=== PATIENT | male | born 1970 | race Caucasian/White ===

== ENCOUNTER 2023-05-29 12:34 | Emergency (ER) | payer BC, SELFPAY ==
[2023-05-29 12:35] VITALS: BP 156/110
[2023-05-29 13:06] VITALS: BP 152/105; BMI 30.1
[2023-05-29 13:21] VITALS: BP 153/104
[2023-05-29 13:25] LABS: % Basophils 1.1 % (0-2); % Eosinophils 0.6 % (0-6); % Immature Granulocytes 0.2 % (0-0.5); % Lymphocytes 25.7 % (20.5-51.1); % Monocytes 7.2 % (1.7-9.3); % Neutrophils 65.2 % (42.2-75.2); Absolute Basophils 0.1 10^3/uL (0-0.2); Absolute Eosinophils 0.1 10^3/uL (0-0.7); Absolute Lymphocytes 2.2 10^3/uL (1.2-3.4); Absolute Monocytes 0.6 10^3/uL (0.1-0.6); Absolute Neutrophils 5.5 10^3/uL (1.4-6.5); Hematocrit 46.3 % (39.0-52.0); Hemoglobin 16.3 g/dL (13.0-18.0); Mean Corp Hgb Conc. 35.2 g/dL (33.0-37.0); Mean Corpuscular Hgb 30.4 pg (27.0-31.0); Mean Corpuscular Volume 86.2 fL (80.0-94.0); Mean Platelet Volume 10.4 fL (7.4-10.4); Nucleated Red Blood Cells % 0 % (-); Platelet Count 229 10^3/uL (130-400); Red Blood Cell Count 5.37 10^6/uL (4.70-6.10); Red Cell Dist. Width 12.4 % (11.5-14.5); White Blood Cell Count 8.5 10^3/uL (4.8-10.8)
[2023-05-29 13:36] LABS: ALT (SGPT) 25 U/L (0-50); AST (SGOT) 22 U/L (17-59); Albumin 4.6 g/dl (3.5-5.0); Alkaline Phosphatase 91 U/L (38-126); Blood Urea Nitrogen 21 mg/dl (9-20); Calcium 9.2 mg/dl (8.4-10.2); Carbon Dioxide 24 mmol/L (22-30); Chloride 107 mmol/L (98-107); Estimated Creatinine Clearance 90 ml/min; Glucose 99 mg/dl (70-99); Potassium 4.1 mmol/L (3.5-5.1); Sodium 137 mmol/L (135-145); Total Bilirubin 0.8 mg/dl (0.2-1.3); Total Protein 7.2 g/dl (6.3-8.2); eGFR > 60.00
--- NOTE | 2023-05-29 13:38 | ED.GENMED ---
History of Present Illness
General
Chief Complaint: Chest Pain
Source: patient
Exam Limitations: none
Time Seen by Provider: 05/29/23 13:03
Travel History
Have you had any contact with someone who has COVID-19?: No
Do you have any symptoms of coronavirus? Fever > 100 degrees, chills, cough, shortness of breath, sore throat, loss of taste or smell, muscle aches, or headache?: No
History of Present Illness
History of Present Illness:
53-year-old male with history of hypertension and anxiety who presents with chest pain that has been ongoing since . The patient states that he was raking leaves and doing some yard work and washing a car when he developed chest discomfort
and shortness of breath. He states that he first thought maybe he was just out of shape. The symptoms persisted. The next day the symptoms still persisted and while driving had what he describes as an anxiety attack. He has had those before and
states it was the same. States got little bit sweaty but was able to tie puller. Since then the pain has persisted. It has been constant since . He states it mostly feels like somebody sitting on his chest but has some pain toward the
right that seems to be a little worse when he breathes. Admits that he is on Lexapro and amlodipine and states that he probably only takes his Lexapro 60% of the time. He states his amlodipine is a little more faithful to but still misses doses.
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
Past History
Past History
ED Past Medical History: HTN and Other (Renal calculi, Prostatitis)
ED Past Surgical History: Orthopedic and Urological
Social History
Tobacco: Former smoker
Alcohol: Occasional
Drug: None
Personal:
Living: alone
Employment: Employed
Family History
Family History: Other (Noncontributory)
Phy Exam
Physical Exam
Physical Exam:
CONSTITUTIONAL Patient alert and oriented to person, place and time. Well-appearing. Vital signs reviewed. Blood pressure 153/103 on exam
HEAD atraumatic, normocephalic.
EYES eyelids normal to inspection, Pupils equally round and reactive to light, Extraocular muscles intact, Conjunctiva normal, Sclera normal.
NECK normal range of motion, Trachea midline, no jugular venous distention.
RESPIRATORY CHEST No respiratory distress noted, Chest expansion equal, Bilateral breath sounds clear.
CARDIOVASCULAR regular rate and rhythm, Heart sounds normal.
ABDOMEN abdomen nontender, Bowel sounds normal. No distention.
BACK normal inspection, no obvious deformities
UPPER EXTREMITY range of motion normal, Motor strength normal, no cyanosis, no edema.
LOWER EXTREMITY range of motion normal, Motor strength normal, no cyanosis, no edema.
NEURO Speech normal, No focal motor deficits, Canyon coma scale 15, Memory normal, Cranial Nerves intact to screening exam.
SKIN skin warm, dry, and normal in color.
Scores
Heart Score for Chest Pain Patients
STEMI patient?: No
History: Slightly or Non-Suspicious
ECG: Normal
Age: >45 - <65 years
Risk Factors: 1 or 2 Risk Factors
Troponin: </= Normal Limit
Heart Score for Chest Pain Patients: 2
Heart Score Risk: 2.5% MACE over next 6 weeks
Course
Orders/Labs/Results
Orders:
Orders
05/29/23 12:37
Electrocardiogram (*1) Urgent
Reason for Study: Chest Pain
EKG- Treatment ONCE
05/29/23 13:17
CMP [Comprehensive Metabolic Panel] Urgent
Complete Blood Count/With Diff Urgent
Troponin I Urgent
05/29/23 13:37
DDimer [D-Dimer] Stat
05/29/23 15:34
CR Chest - 2 Views Urgent
Comment:
Reason For Exam: cp
Abnormal Lab Results
05/29/23
13:17
BUN 21 H mg/dl
(9-20)
05/29/23 13:17
05/29/23 13:17
Vital Signs
Initial and Last Documented VS:
Initial Vital Signs
Temp Pulse Resp BP Pulse Ox
97.6 F 88 18 156/110 97
05/29/23 12:35 05/29/23 12:35 05/29/23 12:35 05/29/23 12:35 05/29/23 12:35
Last Documented Vital Signs
Temp Pulse Resp BP Pulse Ox
97.6 F 66 11 151/87 94
05/29/23 12:35 05/29/23 16:30 05/29/23 16:30 05/29/23 16:00 05/29/23 16:30
MDM/Problems Addressed
MDM/Problems Addressed:
Chest pain, hypertension
Acute Exacerbation and/or Progression of Chronic Illness: HTN
*Radiology
Radiology exam reviewed: radiology read reviewed
*Pulse Oximetry
Patient hypoxic: no
*EKG
Interpreted by ED Provider?: Yes
Rate: normal
Rhythm: sinus
QRS Pattern: normal QRS
Ischemia: non-specific ST changes
*Special Technical Operations Officer Interpretation
Rate: normal
Interpretation: normal
Rhythm: sinus
*Critical Care Note
Total Time (30-74mins, 75-104mins- exclusive of procedures): Not Applicable
Data Reviewed
Source: patient
Prescriptions/Medications Considered But Not Given:
Consider nitroglycerin but symptoms have been constant for the last 3 to 4 days and EKG grossly unremarkable for acute ischemia
Patient Management
Escalation/DeEscalation of care consider admission/obs:
Patient appears well. Symptoms since . Troponin negative. D-dimer negative. Okay for outpatient follow-up. In light of his anxiety and hypotension, add metoprolol. Recommended outpatient PCP follow-up. Will provide outpatient
cardiology follow-up as well
ED Attending Note
-
Portions of this chart may have been created with voice recognition software.� Occasional wrong word or��sound alike� substitutions may have occurred due to the inherent limitations of voice recognition software.
Discharge Plan
Departure
Patient Disposition: Home (Routine Discharge)
Date of Disposition: 05/29/23
Time of Disposition: 16:01
Patient with high blood pressure during this ER visit?: Yes
Discharge Problem:
Chest pain
Instructions: Chest Pain CBC Follow Up, BLOOD PRESSURE
Prescriptions:
No Action
amlodipine 10 MG tablet
10 mg PO DAILY
tamsulosin 0.4 MG capsule
0.4 mg PO PRN PRN (Reason: prostatitis )
escitalopram oxalate [Lexapro] 10 mg Tablet
10 mg PO DAILY
hydrocodone-acetaminophen 5-325 mg tablet
1 tab PO Q6H PRN (Reason: pain) Qty: 10 0RF
Referrals:
NONE,* [Family Provider] -
Activity Restrictions/Additional Instructions:
Please see your doctor or cardiology next 3 to 5 days for follow-up and reevaluation. Return immediately for worsening symptoms, vomiting, shortness of breath, palpitations or any other concerns. Please be sure to take your medications daily as
prescribed.
Interventions
Interventions:
*Risk Screen - Suicide Last Done: 05/29/23 12:35
*General Assessment Last Done: 05/29/23 12:35
*Neglect/Abuse Screening Last Done: 05/29/23 12:35
ED- Fall Risk Assessment Last Done: 05/29/23 13:06
*ED COVID-19 Vaccine History Last Done: 05/29/23 12:35
*Nursing Disposition Last Done: 05/29/23 16:43
ED- Cardiac Assessment Last Done: 05/29/23 13:06
Discharge Date and Time
Discharge Date/Time: 05/29/23 16:44
[2023-05-29 13:48] LABS: Troponin I < 0.012 ng/ml
[2023-05-29 14:00] VITALS: BP 145/97
[2023-05-29 14:14] LABS: D-Dimer 0.26 ug/mlFEU (0.00-0.50)
[2023-05-29 15:00] VITALS: BP 140/106
[2023-05-29 16:00] VITALS: BP 151/87
== END 2023-05-29 16:44 | disposition home or self-care (01) ==
LOC: EMR 12:34
PROVIDERS: EMERGENCY PHYSICIAN Emergency Medicine
DX: R07.89 Other chest pain (principal); I10 Essential (primary) hypertension; F41.9 Anxiety disorder, unspecified; Z87.891 Personal history of nicotine dependence
CPT/HCPCS: 99285; 71046; 80053; 84484; 85025; 85379; 93005

== ENCOUNTER 2023-08-25 14:08 | Emergency (ER) | payer BC, SELFPAY ==
[2023-08-25 14:09] VITALS: BMI 30.1
[2023-08-25 14:14] VITALS: BP 126/94
[2023-08-25 14:31] VITALS: BP 142/104
--- NOTE | 2023-08-25 14:39 | ED.GENMED ---
History of Present Illness
General
Chief Complaint: Chest Pain
Source: patient
Time Seen by Provider: 08/25/23 14:38
Travel History
Have you had any contact with someone who has COVID-19?: No
Do you have any symptoms of coronavirus? Fever > 100 degrees, chills, cough, shortness of breath, sore throat, loss of taste or smell, muscle aches, or headache?: No
History of Present Illness
History of Present Illness:
53-year-old male presents with ongoing chest pain. Started 6 days ago. Has been continuous since then. Was moderate until 3 days ago and less severe since then. Points to lower midsternal. No radiation. No back pain or shearing pain. Similar
episode in May of this year. Did not have this followed up. Patient also has a history of what he calls panic attacks where he will get occasional lightheadedness. He had an episode 2 weeks ago. These occur every few months. Has seen
physicians for this in the past with no serious etiology found.
Past History
Past History
ED Past Medical History: HTN and Other (Renal calculi, Prostatitis)
ED Past Surgical History: Orthopedic and Urological
Social History
Tobacco: Former smoker
Alcohol: Occasional
Drug: None
Personal:
Living: alone
Employment: Employed
Family History
Family History: Other (Noncontributory)
Review of Systems
Review of Systems
All Other Systems: Not applicable
Constitutional: Denies fever
Respiratory: Denies no symptoms
Cardiac: Denies diaphoresis, palpitations or syncope
Phy Exam
Physical Exam
Physical Exam:
GENERAL: Alert and oriented in no apparent distress
EYE: Orbits normal.
NECK: Supple, no thyroid palpable
ENT: Pharynx without erythema
CARDIAC: Regular rate and rhythm without any obvious murmurs.
LUNGS: Clear breath sounds,normal
ABDOMEN: Soft, without focal tenderness or distention
NEUROLOGICAL: Alert and oriented , grossly non-focal
SKIN: Warm and dry, no rash or lesion, no discoloration, skin intact.
MUSCULOSKELETAL: No edema,no deformity.Good color
PSYCH: Normal and appropriate interaction.
Scores
Heart Score for Chest Pain Patients
STEMI patient?: No
History: Slightly or Non-Suspicious
ECG: Normal
Age: >45 - <65 years
Risk Factors: 1 or 2 Risk Factors
Troponin: </= Normal Limit
Heart Score for Chest Pain Patients: 2
Heart Score Risk: 2.5% MACE over next 6 weeks
Course
Orders/Labs/Results
Orders:
Orders
08/25/23 14:11
Electrocardiogram (*1) Urgent
Reason for Study: Chest Pain
EKG- Treatment ONCE
08/25/23 14:38
Complete Blood Count/With Diff Urgent
Comprehensive Metabolic Panel Urgent
Troponin I Urgent
08/25/23 15:00
D-Dimer Urgent
08/25/23 17:43
Valsartan [Diovan] 80 mg PO NOW STA
08/25/23 14:38
08/25/23 14:38
Vital Signs
Initial and Last Documented VS:
Initial Vital Signs
Temp Pulse Resp BP Pulse Ox
99.6 F 100 16 126/94 98
08/25/23 14:14 08/25/23 14:14 08/25/23 14:14 08/25/23 14:14 08/25/23 14:14
Last Documented Vital Signs
Temp Pulse Resp BP Pulse Ox
99.6 F 66 11 148/106 98
08/25/23 14:14 08/25/23 17:00 08/25/23 17:00 08/25/23 17:00 08/25/23 14:14
MDM/Problems Addressed
Differential Diagnosis Includes:
Patient with continual lower midsternal chest discomfort for 6 days. Nonexertional. Nontoxic in appearance benign exam. EKG is stable. Await troponin. Expect this to be stable. Patient has describes some mild shortness of breath with exertion
while playing golf last week. Workup in progress. If all stable no indication for repeat troponin testing given the prolonged symptoms however as I discussed with him should warrant cardiac follow-up for completeness
*Pulse Oximetry
Patient hypoxic: no
*EKG
Interpreted by ED Provider?: Yes
Interpretation: abnormal
Comparison EKG: no changes
Heart Rate: 70
Rate: normal
Rhythm: sinus
Shafter: normal axis
Interval: normal interval
QRS Pattern: normal QRS
Ischemia: non-specific ST changes
*Critical Care Note
Total Time (30-74mins, 75-104mins- exclusive of procedures): Not Applicable
Data Reviewed
Review of Other/Old Records Reveals: Labs, Records and Testing
Update Note
Update Note:
Patient with continuous nonexertional chest pain for 6 days. Clinically nontoxic and in no distress. Workup unremarkable. Patient had a chest x-ray in May. Do not feel this needs to be repeated. Nothing to support the concern for dissection.
Diastolic blood pressures have been running about 105 here. It sounds like they have been running high at home. Patient is on amlodipine 10 mg a day. I feel a second agent is reasonable. Discussed with cardiology who recommended valsartan 80 mg
a day. They will be following up this week. Patient also questioned a higher dose of Lexapro which I stated really should be discussed with a primary physician.
ED Attending Note
-
Portions of this chart may have been created with voice recognition software.� Occasional wrong word or��sound alike� substitutions may have occurred due to the inherent limitations of voice recognition software.
Discharge Plan
Departure
Patient Disposition: Home (Routine Discharge)
Date of Disposition: 08/25/23
Time of Disposition: 17:45
Patient with high blood pressure during this ER visit?: Yes
Discharge Problem:
Anterior chest pain
Instructions: Chest Pain CBC Follow Up, BLOOD PRESSURE
Prescriptions:
New
valsartan 80 mg tablet
80 mg PO DAILY Qty: 30 0RF
No Action
amlodipine 10 MG tablet
10 mg PO DAILY
tamsulosin 0.4 MG capsule
0.4 mg PO PRN PRN (Reason: prostatitis )
escitalopram oxalate [Lexapro] 10 mg Tablet
10 mg PO DAILY
hydrocodone-acetaminophen 5-325 mg tablet
1 tab PO Q6H PRN (Reason: pain) Qty: 10 0RF
Referrals:
[facility] [Outside] - Next open appointment
Rahul Wills MD [Active] - Follow up in 2-3 days
NONE,* [Family Provider] -
Interventions
Interventions:
*Risk Screen - Suicide Last Done: 08/25/23 14:40
*General Assessment Last Done: 08/25/23 14:40
*Neglect/Abuse Screening Last Done: 08/25/23 14:40
ED- Fall Risk Assessment Last Done: 08/25/23 14:40
*ED COVID-19 Vaccine History Last Done: 08/25/23 14:14
ED- Cardiac Assessment Last Done: 08/25/23 14:40
Discharge Date and Time
Print Language: HEBREW
[2023-08-25 14:54] LABS: % Basophils 1.1 % (0-2); % Eosinophils 0.2 % (0-6); % Immature Granulocytes 0.2 % (0-0.5); % Lymphocytes 28.3 % (20.5-51.1); % Monocytes 5.5 % (1.7-9.3); % Neutrophils 64.7 % (42.2-75.2); Absolute Basophils 0.1 10^3/uL (0-0.2); Absolute Lymphocytes 2.6 10^3/uL (1.2-3.4); Absolute Monocytes 0.5 10^3/uL (0.1-0.6); Hematocrit 44.4 % (39.0-52.0); Mean Corpuscular Hgb 30.7 pg (27.0-31.0); Mean Corpuscular Volume 85.2 fL (80.0-94.0); Mean Platelet Volume 10.2 fL (7.4-10.4); Nucleated Red Blood Cells % 0 % (-); Platelet Count 264 10^3/uL (130-400); Red Blood Cell Count 5.21 10^6/uL (4.70-6.10); Red Cell Dist. Width 12.6 % (11.5-14.5); White Blood Cell Count 9.2 10^3/uL (4.8-10.8)
[2023-08-25 15:00] VITALS: BP 142/105
[2023-08-25 15:05] LABS: ALT (SGPT) 19 U/L (0-50); AST (SGOT) 20 U/L (17-59); Albumin 4.6 g/dl (3.5-5.0); Alkaline Phosphatase 94 U/L (38-126); Blood Urea Nitrogen 18 mg/dl (9-20); Calcium 9.4 mg/dl (8.4-10.2); Carbon Dioxide 24 mmol/L (22-30); Chloride 106 mmol/L (98-107); Estimated Creatinine Clearance 99 ml/min; Glucose 97 mg/dl (70-99); Potassium 3.9 mmol/L (3.5-5.1); Sodium 139 mmol/L (135-145); Total Bilirubin 0.7 mg/dl (0.2-1.3); Total Protein 7.1 g/dl (6.3-8.2); eGFR > 60.00
[2023-08-25 15:17] LABS: Troponin I < 0.012 ng/ml
[2023-08-25 16:00] VITALS: BP 147/99
[2023-08-25 17:00] VITALS: BP 148/106
[2023-08-25 17:48] VITALS: BP 150/104
[2023-08-25] MEDS: DIOVAN 80 MG PO (17:48)
== END 2023-08-25 17:53 | disposition home or self-care (01) ==
LOC: EMR 14:08
PROVIDERS: EMERGENCY PHYSICIAN Emergency Medicine
DX: R07.89 Other chest pain (principal); I10 Essential (primary) hypertension; Z87.891 Personal history of nicotine dependence; Z87.442 Personal history of urinary calculi
CPT/HCPCS: 99283; 80053; 84484; 85025; 85379; 93005

== ENCOUNTER → 2023-09-11 14:19 | Outpatient (REF) | payer BC, SELFPAY | LOC: RCS 14:19 | PROVIDERS: ATTENDING PHYSICIAN Internal Medicine Cardiovascular Disease | DX: R07.2 Precordial pain (principal) | CPT/HCPCS: 93017 ==

== ENCOUNTER → 2023-09-29 13:25 | Outpatient (REF) | payer BC, SELFPAY | LOC: RCS 13:25 | PROVIDERS: ATTENDING PHYSICIAN Internal Medicine Cardiovascular Disease | DX: R07.2 Precordial pain (principal) | CPT/HCPCS: 93306 ==

== ENCOUNTER → 2024-07-17 12:39 | Outpatient (REF) | payer BC, SELFPAY | LOC: RAD 12:39 | PROVIDERS: ATTENDING PHYSICIAN Otolaryngology | DX: R04.2 Hemoptysis (principal) | CPT/HCPCS: 71046 ==